=== PATIENT | female | born 1995 | race Caucasian/White ===

== ENCOUNTER 2019-04-26 12:43 | Emergency (ER) | payer MEDICAID ==
[~2019-04-26] VITALS: Ht 152.4 cm; Wt 56.7 kg
[~2019-04-26 12:43] MED LIST: PREN-125 PO
[2019-04-26 13:22] LABS: Basophils # (auto) 0.1 uL; Basophils % (auto) 0.7 % (0.0-2.0); Eosinophils # (auto) 0 uL; Eosinophils % (auto) 0.5 % (0.0-7.0); Hematocrit 52.1 % (36.0-46.0); Hemoglobin 17.6 g/dL (12.2-16.2); Lymphocytes # (auto) 3.2 uL; Lymphocytes % (auto) 40.3 % (10.0-50.0); Mean Corpuscular Hemoglobin 33.4 pg (28.0-32.0); Mean Corpuscular Hgb Conc. 33.8 g/dL (32.0-36.0); Mean Corpuscular Volume 98.9 fL (80.0-100.0); Monocytes # (auto) 0.3 uL; Monocytes % (auto) 3.3 % (0.0-12.0); Neutrophils # (auto) 4.4 uL; Neutrophils % (auto) 55.2 % (37.0-80.0); Nucleated Red Blood Cells % 0.1 %; Platelet Count (auto) 209 10^3/uL (140-450); Red Blood Cells 5.26 10^6/uL (4.0-5.20); Red Cell Distribution Width 14.2 % (11.8-14.3); White Blood Cell 7.9 10^3/uL (4.4-10.8)
[2019-04-26] MEDS ORDERED: LORazepam 2MG/ML-1ML VIAL IV ONE (13:30)
[2019-04-26 13:39] LABS: Albumin 4.1 g/dL (3.4-5.0); Anion Gap 10 (5-15); Blood Urea Nitrogen 11 mg/dL (7-18); Carbon Dioxide 25 mmol/L (21-32); Chloride 108 mmol/L (98-107); Glucose 86 mg/dL (74-106); INR 0.98 (0.9-1.15); Partial Thromboplastin Time 27.3 sec (23.64-32.05); Potassium 3.5 mmol/L (3.5-5.1); Sodium 143 mmol/L (136-145)
[2019-04-26 13:40] VITALS: BP 126/92
[2019-04-26 13:47] LABS: Alanine Aminotransferase 31 U/L (13-56); Alkaline Phosphatase 102 U/L (45-117); Aspartate Aminotransferase 38 U/L (15-37); BUN/Creatinine Ratio 18.3; Bilirubin, Total 0.3 mg/dL (0.2-1.0); GFR African American 157 mL/min; GFR Non-African American 129 mL/min; Total Protein 8.9 g/dL (6.4-8.2)
[2019-04-26] MEDS ORDERED: IOHEXOL 350 MG/ML 100ML IJ ONE (13:56)
== END 2019-04-26 14:42 | disposition left against medical advice (07) ==
LOC: ER 12:52
DX: R06.02 Shortness of breath (principal); F17.210 Nicotine dependence, cigarettes, uncomplicated; F12.10 Cannabis abuse, uncomplicated; Z53.29 Procedure and treatment not carried out because of patient's decision for other reasons
CPT/HCPCS: 36415; 71046; 80053; 80320; 84484; 85025; 85610; 85730; 99284; Q9967

== ENCOUNTER → 2019-05-09 | Emergency (ER) | payer MEDICAID | END | disposition left against medical advice (07) | LOC: ER 03:26 | DX: R06.02 Shortness of breath (principal); Z53.21 Procedure and treatment not carried out due to patient leaving prior to being seen by health care provider ==

== ENCOUNTER 2019-08-01 23:08 | Emergency (ER) | payer MEDICAID ==
[~2019-08-01] VITALS: Ht 152.4 cm; Wt 54.4 kg
[2019-08-02] MEDS ORDERED: KETOROLAC TROMETH 60MG/2ML VIAL IM ONE (00:45)
[2019-08-02] MEDS ORDERED: cefTRIAXone SOD 1,000 MG VL IM ONE (00:45)
[2019-08-02 01:06] VITALS: BP 132/92
== END 2019-08-02 00:39 | disposition home or self-care (01) ==
LOC: ER 23:11
DX: L02.416 Cutaneous abscess of left lower limb (principal); F17.210 Nicotine dependence, cigarettes, uncomplicated
CPT/HCPCS: 96372; 99284; J0696; J1885

== ENCOUNTER 2022-01-12 00:59 | Emergency (ER) | payer MEDICAID ==
[~2022-01-12] VITALS: Ht 165.1 cm; Wt 60.0 kg
[2022-01-12] MEDS ORDERED: NALO4SPR2 (02:27)
[2022-01-12 03:00] VITALS: BP 132/78
== END 2022-01-12 03:34 | disposition home or self-care (01) ==
LOC: EDBD 00:59 → ER 00:59
DX: T40.2X1A Poisoning by other opioids, accidental (unintentional), initial encounter (principal); F17.210 Nicotine dependence, cigarettes, uncomplicated; Z79.899 Other long term (current) drug therapy; Y92.89 Other specified places as the place of occurrence of the external cause
CPT/HCPCS: 93005

== ENCOUNTER 2022-09-11 04:51 | Emergency (ER) | payer MEDICAID ==
[~2022-09-11] VITALS: Ht 162.6 cm; Wt 62.0 kg
[~2022-09-11 04:51] MED LIST changes: +NALO4SPR2
[2022-09-11] MEDS ORDERED: LORazepam 2MG/ML-1ML VIAL IV ONE (06:30)
[2022-09-11 09:25] VITALS: BP 105/66
== END 2022-09-11 09:40 | disposition home or self-care (01) ==
LOC: EDBD 04:51 → ER 04:51
DX: S01.01XA Laceration without foreign body of scalp, initial encounter (principal); F17.210 Nicotine dependence, cigarettes, uncomplicated; Y08.89XA Assault by other specified means, initial encounter; Y93.89 Activity, other specified; Y92.89 Other specified places as the place of occurrence of the external cause; Y99.8 Other external cause status
CPT/HCPCS: 70450; 71250; 72125; 74176; 96374; 99285; J2060

== ENCOUNTER 2023-07-02 05:59 | Inpatient (IN) | payer MEDICAID ==
[~2023-07-02] VITALS: Ht 152.4 cm; Wt 66.7 kg
[2023-07-02] MEDS ORDERED: OXYTOCIN 10UNIT/ML 1ML VIAL ONE (06:04)
[2023-07-02] MEDS ORDERED: LACT. RINGERS/OXYTOCIN 20UNITS 1,000 ML IV ONE (06:04)
[2023-07-02] MEDS: METHYLERGONOVINE MALEATE 0.2 MG/ML AMP IM ONE ×2 (06:11→06:15)
[2023-07-02] MEDS: CARBOPROST TROMETHAMINE 250 MCG/1ML VIAL IM ONE ×2 (06:12→06:15)
[2023-07-02] MEDS ORDERED: PROMETHAZINE HCL 25 MG/ML 1ML IV PRN (06:15)
[2023-07-02] MEDS ORDERED: LIDOCAINE 2%HCL (LOCAL ANESTH.) INJ 20ML MDV IJ PRN (06:15)
[2023-07-02] MEDS ORDERED: LACTATED RINGER'S 1,000 ML IV SCH (06:15)
[2023-07-02] MEDS ORDERED: BUTORPHANOL TARTRATE 2 MG/1 ML VIAL IV PRN ×2 (06:15)
[2023-07-02] MEDS: LIDOCAINE 2%HCL (LOCAL ANESTH.) INJ 10ml MDV ONE (07:06)
[2023-07-02] MEDS: OXYTOCIN 10UNIT/ML 1ML VIAL IM ONE (07:07)
[2023-07-02] MEDS: LACT. RINGERS/OXYTOCIN 20UNITS 500 ML IV ONE ×2 (07:08)
[2023-07-02] MEDS: DERMOPLAST 60ML BOTTLE TOP PRN (07:15)
[2023-07-02] MEDS: PHISODERM TOP SOLN 240ML BTL TOP PRN (07:15)
[2023-07-02] MEDS: WITCH HAZEL-GLYCERIN PAD TOP PRN (07:16)
[2023-07-02 07:39] LABS: Urine Bacteria FEW /hpf (None Seen); Urine Blood 2+ /uL (Negative); Urine Clarity HAZY (Clear); Urine Color Yellow (Yellow); Urine Protein, UAD TRACE (Negative); Urine Specific Gravity 1.018 (1.001-1.035); Urine WBC 192 /hpf (0 - 5); Urine pH 7.5 (5.0-8.0)
[2023-07-02 07:45] LABS: Amphetamine Screen, Urine Pos (NEGATIVE); Benzodiazephine Screen, Urine Neg (NEGATIVE)
[2023-07-02 07:46] LABS: Barbiturate Scree,Urine Neg (NEGATIVE); Cannabinoid Screen, Urine Neg (NEGATIVE); Cocaine Screen, Urine Neg (NEGATIVE); Opiate Scree,Urine Neg (NEGATIVE); Phencyclidine Screen, Urine Neg (NEGATIVE)
[2023-07-02] MEDS ORDERED: NITR-87 PO (07:58)
[2023-07-02] MEDS ORDERED: IBU600T PO (07:58)
[2023-07-02 08:24] LABS: Basophils # (auto) 0 10 ^3/uL (0-0.2); Basophils % (auto) 0.3 % (0.0-2.0); Eosinophils # (auto) 0.1 10 ^3/uL (0-0.8); Eosinophils % (auto) 0.5 % (0.0-7.0); Hematocrit 34.4 % (36.0-46.0); Lymphocytes # (auto) 1.8 10 ^3/uL (0.4-5.4); Lymphocytes % (auto) 12.5 % (10.0-50.0); Mean Corpuscular Hemoglobin 26.8 pg (28.0-32.0); Mean Corpuscular Hgb Conc. 31.8 g/dL (32.0-36.0); Mean Corpuscular Volume 84.1 fL (80.0-100.0); Monocytes # (auto) 0.6 10 ^3/uL (0-1.3); Neutrophils # (auto) 12.1 10 ^3/uL (1.6-8.6); Neutrophils % (auto) 82.7 % (37.0-80.0); Nucleated Red Blood Cells % 0.1 %; Red Blood Cells 4.09 10^6/uL (4.0-5.20); Red Cell Distribution Width 14.5 % (11.8-14.3); White Blood Cell 14.7 10^3/uL (4.4-10.8)
[2023-07-02 08:30] VITALS: BP 117/69; PULSE 56; RESP 16; TEMP 97.9; O2SAT 99
[2023-07-02 08:41] LABS: INR 0.98 (0.9-1.15); Partial Thromboplastin Time 28.6 SEC (24.5-34.5); Prothrombin Time 10.3 sec (9.3-11.8)
[2023-07-02 08:44] LABS: Albumin 3.6 g/dL (3.2-4.8); Alkaline Phosphatase 197 U/L (46-116); Anion Gap 11 (5-15); Aspartate Aminotransferase 40 U/L (13-40); Calcium 9.1 mg/dL (8.5-10.1); Carbon Dioxide 22 mmol/L (20-30); Chloride 102 mmol/L (98-107); Glucose 116 mg/dL (74-106); Sodium 135 mmol/L (136-145)
[2023-07-02 08:45] LABS: Bilirubin, Total 0.6 mg/dL (0.2-1.0); Total Protein 6.6 g/dL (5.7-8.2)
[2023-07-02] MEDS ORDERED: ACETAMINOPHEN 325 MG TAB PO PRN (09:00)
[2023-07-02] MEDS ORDERED: ONDANSETRON ODT 4 MG TAB PO PRN (09:00)
[2023-07-02 09:02] LABS: Alanine Aminotransferase 22 U/L (7-40); Blood Urea Nitrogen 7 mg/dL (9-23); Potassium 4.7 mmol/L (3.5-5.1)
[2023-07-02 09:05] LABS: BUN/Creatinine Ratio 10.3 (10.0-20.0)
[2023-07-02 11:00] VITALS: BP 129/84; PULSE 57; RESP 16; TEMP 98.4; O2SAT 100
[2023-07-02] MEDS: IBUPROFEN 600 MG TAB PO PRN (14:11)
[2023-07-02 15:00] VITALS: BP 118/76; PULSE 55; RESP 16; TEMP 98.6; O2SAT 98
[2023-07-02 22:00] VITALS: BP 148/87; PULSE 83; RESP 20; TEMP 98; O2SAT 97
[2023-07-03 05:56] LABS: Basophils # (auto) 0.1 10 ^3/uL (0-0.2); Basophils % (auto) 0.6 % (0.0-2.0); Eosinophils # (auto) 0.1 10 ^3/uL (0-0.8); Eosinophils % (auto) 0.9 % (0.0-7.0); Hematocrit 26.4 % (36.0-46.0); Hemoglobin 8.5 g/dL (12.2-16.2); Lymphocytes % (auto) 27.8 % (10.0-50.0); Mean Corpuscular Hemoglobin 27.3 pg (28.0-32.0); Mean Corpuscular Hgb Conc. 32.2 g/dL (32.0-36.0); Mean Corpuscular Volume 84.7 fL (80.0-100.0); Monocytes % (auto) 6.9 % (0.0-12.0); Neutrophils # (auto) 9.2 10 ^3/uL (1.6-8.6); Neutrophils % (auto) 63.8 % (37.0-80.0); Nucleated Red Blood Cells % 0.2 %; Red Blood Cells 3.12 10^6/uL (4.0-5.20); Red Cell Distribution Width 14.6 % (11.8-14.3); White Blood Cell 14.4 10^3/uL (4.4-10.8)
[2023-07-03 07:00] VITALS: BP 123/87; PULSE 63; RESP 20; TEMP 99.2; O2SAT 100
[2023-07-03 07:06] LABS: RPR Non Reactive (Non Reactive)
[2023-07-03 08:06] LABS: Rubella Antibodies, IgG <0.90 index (Immune >0.99)
[2023-07-03 11:15] VITALS: BP 126/81; PULSE 60; RESP 18; TEMP 97.7; O2SAT 100
[2023-07-03 15:22] VITALS: BP 125/82; PULSE 60; RESP 20; TEMP 98; O2SAT 98
[2023-07-03 18:40] VITALS: BP 130/84; PULSE 59; RESP 19; TEMP 98.3; O2SAT 100
[2023-07-03 22:50] VITALS: BP 140/87; PULSE 53; RESP 18; TEMP 97.9; O2SAT 99
[2023-07-04 03:00] VITALS: BP 138/81; PULSE 53; RESP 18; TEMP 98.1; O2SAT 98
[2023-07-04] MEDS ORDERED: FER325T PO (03:32)
[2023-07-04 07:00] VITALS: BP 148/85; PULSE 56; RESP 16; RESP 18; TEMP 98.5; O2SAT 98
[2023-07-04] MEDS ORDERED: PATIENTS OWN MEDICATION PO SCH ×2 (08:30→10:00)
[2023-07-04] MEDS: METHADONE HCL 10 MG TAB PO SCH (09:01)
[2023-07-04 11:00] VITALS: BP 158/94; PULSE 60; RESP 18; TEMP 98.5; O2SAT 100
[2023-07-04] MEDS: MEASLES, MUMPS & RUBELLA VAC(MMRII) 0.5ML SC ONE (12:00)
[2023-07-04] MEDS: LABETALOL HCL 200 MG TAB PO SCH (12:12)
[2023-07-07 19:06] LABS: Treponema pallidum Ab (FTA-Ab) Non Reactive (Non Reactive)
== END 2023-07-04 12:27 | disposition left against medical advice (07) | DRG 560 ==
LOC: LDRP 05:59 → OBSVTOIN 06:13 → LDRP 09:38
PROVIDERS: ADMIT Obstetrics & Gynecology; ATTEND Obstetrics & Gynecology
PROC: 10E0XZZ Delivery of Products of Conception, External Approach (ICD-10-PCS; principal; 2023-07-02)
PROC: 0HQ9XZZ Repair Perineum Skin, External Approach (ICD-10-PCS; 2023-07-02)
DX: O77.0 Labor and delivery complicated by meconium in amniotic fluid (principal); Z37.0 Single live birth; R71.0 Precipitous drop in hematocrit; O70.0 First degree perineal laceration during delivery; Z3A.38 38 weeks gestation of pregnancy
CPT/HCPCS: 36415; 59025; 59409; 80053; 80307; 81001; 81002; 85025; 85610; 85730; 86592; 86703; 86762; 86850; 86900; 86901; 87340; 94760; 96365; 96366; 96372; G0378; J2001; J2590